=== PATIENT | female | born 1995 | race Caucasian/White ===

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

== ENCOUNTER 2017-05-23 22:41 | Emergency (ER) | payer OTHER ==
[~2017-05-23] VITALS: Ht 149.9 cm; Wt 64.0 kg
[2017-05-23 23:31] LABS: APPEARANCE CLEAR ((CLEAR)); BILIRUBIN NEGATIVE; BLOOD NEGATIVE; COLOR STRAW ((YELLOW)); GLUCOSE (STRIP) NEGATIVE; KETONES NEGATIVE; LEUKOCYTES TRACE; NITRITE NEGATIVE; PROTEIN (STRIP) NEGATIVE; SPECIFIC GRAVITY 1.002 (1.000-1.030); UROBILINOGEN 0.2 MG/DL (0.2-1.0)
[2017-05-23 23:36] LABS: BACTERIA RARE /HPF; EPITHELIAL CELLS 1+ /HPF; MUCUS NONE SEEN /LPF; RED BLOOD CELLS 0-5 /HPF (0-5); UCUL ADDED? NO; WHITE BLOOD CELLS 0-5 /HPF (0-5)
[2017-05-24] VITALS: BP 108/81
== END 2017-05-24 00:06 | disposition home or self-care (01) ==
LOC: EME 22:41
PROVIDERS: Emergency Medicine
DX: O26.891 Other specified pregnancy related conditions, first trimester (principal); W01.0XXA Fall on same level from slipping, tripping and stumbling without subsequent striking against object, initial encounter; Y93.02 Activity, running; Z3A.01 Less than 8 weeks gestation of pregnancy
CPT/HCPCS: 76801; 81003; 99281; 99283

== ENCOUNTER 2017-06-01 23:29 | Emergency (ER) | payer OTHER ==
[~2017-06-01] VITALS: Ht 149.9 cm; Wt 63.0 kg
[2017-06-01 23:51] LABS: HEMATOCRIT 37.7 % (36.0-46.0); HEMOGLOBIN 12.9 G/DL (11.9-15.5); MCHC 34.2 G/DL (30.0-36.0); MCV 87.7 FL (83-99); PLATELET COUNT 301 K/uL (156-360); RBC DIS.WIDTH-CV 13.9 % (11.8-14.6); RBC DIS.WIDTH-SD 44.7 % (39-53); WHITE BLOOD COUNT 8.2 K/uL (4.1-10.2)
[2017-06-01 23:59] LABS: ALBUMIN 4.1 g/dL (3.2-4.8); CHLORIDE 104 mEq/L (99-109); POTASSIUM 3.9 mEq/L (3.7-5.4); SODIUM 135 mEq/L (136-147)
[2017-06-02 00:01] LABS: GLUCOSE 101 mg/dL (70-99); TOTAL PROTEIN 6.8 g/dL (6.4-8.3)
[2017-06-02 00:03] LABS: TOTAL BILIRUBIN 0.4 mg/dL (0.0-1.0)
[2017-06-02 00:05] LABS: ALKALINE PHOSPHATASE 74 IU/L (3-129); CREATININE 0.7 mg/dL (0.6-1.3); GFR ESTIMATE (CALCULATED) > 59 mL/min/
[2017-06-02 00:06] LABS: AST (GOT) 19 IU/L (2-34); UREA NITROGEN (BUN) 10 mg/dL (9-23)
[2017-06-02 00:08] LABS: ALT (GPT) 15 IU/L (3-49)
[2017-06-02 00:10] LABS: APPEARANCE SL.HAZY ((CLEAR)); BILIRUBIN NEGATIVE; BLOOD NEGATIVE; COLOR YELLOW ((YELLOW)); GLUCOSE (STRIP) NEGATIVE; KETONES NEGATIVE; LEUKOCYTES SMALL; NITRITE NEGATIVE; PROTEIN (STRIP) NEGATIVE; SPECIFIC GRAVITY 1.006 (1.000-1.030); UROBILINOGEN 0.2 MG/DL (0.2-1.0)
[2017-06-02 00:31] LABS: QUANTITATIVE HCG 90267.2 MIU/ML
[2017-06-02 00:37] LABS: BACTERIA RARE /HPF; EPITHELIAL CELLS 3+ /HPF; MUCUS TRACE /LPF; RED BLOOD CELLS 0-5 /HPF (0-5); UCUL ADDED? NO; WHITE BLOOD CELLS 0-5 /HPF (0-5)
[2017-06-02 03:39] VITALS: BP 110/71
== END 2017-06-02 03:41 | disposition home or self-care (01) ==
LOC: EME 23:29
DX: O20.0 Threatened abortion (principal); Z3A.01 Less than 8 weeks gestation of pregnancy; O99.511 Diseases of the respiratory system complicating pregnancy, first trimester; J45.909 Unspecified asthma, uncomplicated; O99.341 Other mental disorders complicating pregnancy, first trimester; F32.9 Major depressive disorder, single episode, unspecified; F42.9 Obsessive-compulsive disorder, unspecified
CPT/HCPCS: 76801; 80053; 81003; 84702; 85027; 99281; 99284

== ENCOUNTER 2017-07-21 18:25 | Emergency (ER) | payer OTHER ==
[~2017-07-21] VITALS: Ht 149.9 cm; Wt 64.0 kg
[2017-07-21 19:11] LABS: HEMATOCRIT 35.2 % (36.0-46.0); HEMOGLOBIN 12.3 G/DL (11.9-15.5); MCH 30.9 PG (29.0-34.0); MCHC 34.9 G/DL (30.0-36.0); MCV 88.4 FL (83-99); PLATELET COUNT 225 K/uL (156-360); RBC DIS.WIDTH-CV 13.2 % (11.8-14.6); RBC DIS.WIDTH-SD 43.1 % (39-53); RED BLOOD COUNT 3.98 M/uL (3.80-5.20)
[2017-07-21 19:30] LABS: ALBUMIN 3.8 g/dL (3.2-4.8); CHLORIDE 107 mEq/L (99-109); POTASSIUM 4.6 mEq/L (3.7-5.4); SODIUM 138 mEq/L (136-147)
[2017-07-21 19:32] LABS: GLUCOSE 91 mg/dL (70-99)
[2017-07-21 19:33] LABS: TOTAL PROTEIN 6.7 g/dL (6.4-8.3)
[2017-07-21 19:34] LABS: TOTAL BILIRUBIN 0.4 mg/dL (0.0-1.0)
[2017-07-21 19:36] LABS: ALKALINE PHOSPHATASE 70 IU/L (3-129); CREATININE 0.6 mg/dL (0.6-1.3); GFR ESTIMATE (CALCULATED) > 59 mL/min/
[2017-07-21 19:37] LABS: UREA NITROGEN (BUN) 7 mg/dL (9-23)
[2017-07-21 19:38] LABS: AST (GOT) 16 IU/L (2-34)
[2017-07-21 19:39] LABS: ALT (GPT) 10 IU/L (3-49)
[2017-07-21 19:51] LABS: APPEARANCE CLEAR ((CLEAR)); BILIRUBIN NEGATIVE; BLOOD NEGATIVE; COLOR YELLOW ((YELLOW)); GLUCOSE (STRIP) NEGATIVE; KETONES NEGATIVE; LEUKOCYTES TRACE; NITRITE NEGATIVE; PROTEIN (STRIP) NEGATIVE; SPECIFIC GRAVITY 1.004 (1.000-1.030); UROBILINOGEN 0.2 MG/DL (0.2-1.0)
[2017-07-21 20:05] LABS: BACTERIA NONE SEEN /HPF; EPITHELIAL CELLS 1+ /HPF; MUCUS NONE SEEN /LPF; RED BLOOD CELLS 0-5 /HPF (0-5); UCUL ADDED? NO; WHITE BLOOD CELLS 0-5 /HPF (0-5)
[2017-07-21 21:18] VITALS: BP 98/70
== END 2017-07-21 21:25 | disposition home or self-care (01) ==
LOC: EME → EDBD 18:25 → EME 21:25
PROVIDERS: Emergency Medicine Emergency Medical Services
DX: O99.282 Endocrine, nutritional and metabolic diseases complicating pregnancy, second trimester (principal); E86.0 Dehydration; O26.892 Other specified pregnancy related conditions, second trimester; R10.9 Unspecified abdominal pain; R53.1 Weakness; W18.30XA Fall on same level, unspecified, initial encounter; O99.342 Other mental disorders complicating pregnancy, second trimester; F32.9 Major depressive disorder, single episode, unspecified; Z3A.15 15 weeks gestation of pregnancy
CPT/HCPCS: 80053; 81003; 85027; 93005; 99281; 99285

== ENCOUNTER 2017-07-29 21:44 | Emergency (ER) | payer OTHER ==
[~2017-07-29] VITALS: Ht 149.9 cm; Wt 63.0 kg
[2017-07-29 22:25] LABS: HEMATOCRIT 33.1 % (36.0-46.0); HEMOGLOBIN 11.4 G/DL (11.9-15.5); MCH 30.2 PG (29.0-34.0); MCHC 34.4 G/DL (30.0-36.0); MCV 87.8 FL (83-99); PLATELET COUNT 250 K/uL (156-360); RBC DIS.WIDTH-CV 13.2 % (11.8-14.6); RBC DIS.WIDTH-SD 42.4 % (39-53); RED BLOOD COUNT 3.77 M/uL (3.80-5.20); WHITE BLOOD COUNT 6.9 K/uL (4.1-10.2)
[2017-07-29 22:36] LABS: CHLORIDE 106 mEq/L (99-109); POTASSIUM 3.2 mEq/L (3.7-5.4); SODIUM 139 mEq/L (136-147)
[2017-07-29 22:38] LABS: GLUCOSE 91 mg/dL (70-99)
[2017-07-29 22:42] LABS: CREATININE 0.6 mg/dL (0.6-1.3); GFR ESTIMATE (CALCULATED) > 59 mL/min/
[2017-07-29 22:43] LABS: UREA NITROGEN (BUN) 5 mg/dL (9-23)
[2017-07-30 00:08] LABS: APPEARANCE CLEAR ((CLEAR)); BILIRUBIN NEGATIVE; BLOOD SMALL; COLOR STRAW ((YELLOW)); GLUCOSE (STRIP) NEGATIVE; KETONES NEGATIVE; LEUKOCYTES NEGATIVE; NITRITE NEGATIVE; PROTEIN (STRIP) NEGATIVE; SPECIFIC GRAVITY 1.008 (1.000-1.030); UROBILINOGEN 0.2 MG/DL (0.2-1.0)
[2017-07-30] MEDS ORDERED: PHENERGAN1.25 MG/ML PO (00:24)
[2017-07-30] MEDS ORDERED: ZITHROMAX Z-PA250 MG PO (00:24)
[2017-07-30 00:40] LABS: BACTERIA RARE /HPF; EPITHELIAL CELLS RARE /HPF; HYALINE CASTS 0-5 /LPF; MUCUS NONE SEEN /LPF; RED BLOOD CELLS 0-5 /HPF (0-5); UCUL ADDED? NO; WHITE BLOOD CELLS 0-5 /HPF (0-5)
[2017-07-30] MEDS ORDERED: VENTOLIN HFA18 GM IH (00:52)
[2017-07-30 00:54] VITALS: BP 102/57
[2017-07-30] MEDS ORDERED: PREDNISONE20 MG PO (23:54)
== END 2017-07-30 00:56 | disposition home or self-care (01) ==
LOC: EME 21:44
PROVIDERS: Physician Assistant
DX: O99.512 Diseases of the respiratory system complicating pregnancy, second trimester (principal); J06.9 Acute upper respiratory infection, unspecified; O26.892 Other specified pregnancy related conditions, second trimester; R10.30 Lower abdominal pain, unspecified; O99.342 Other mental disorders complicating pregnancy, second trimester; F32.9 Major depressive disorder, single episode, unspecified; Z3A.16 16 weeks gestation of pregnancy
CPT/HCPCS: 76805; 80048; 81003; 85027; 87502; 94640; 99281; 99284

== ENCOUNTER 2017-07-30 20:08 | Emergency (ER) | payer OTHER ==
[~2017-07-30] VITALS: Ht 149.9 cm; Wt 63.9 kg
[~2017-07-30 20:08] MED LIST changes: +PHENERGAN1.25 MG/ML PO; +VENTOLIN HFA18 GM IH
[2017-07-30 21:20] LABS: APPEARANCE CLEAR ((CLEAR)); BILIRUBIN NEGATIVE; BLOOD NEGATIVE; COLOR STRAW ((YELLOW)); GLUCOSE (STRIP) NEGATIVE; KETONES NEGATIVE; LEUKOCYTES NEGATIVE; NITRITE NEGATIVE; PROTEIN (STRIP) NEGATIVE; SPECIFIC GRAVITY 1.004 (1.000-1.030); UCUL ADDED? NO; UROBILINOGEN 0.2 MG/DL (0.2-1.0)
[2017-07-30 21:41] LABS: HEMATOCRIT 32.1 % (36.0-46.0); HEMOGLOBIN 11.2 G/DL (11.9-15.5); MCH 31.3 PG (29.0-34.0); MCHC 34.9 G/DL (30.0-36.0); MCV 89.7 FL (83-99); PLATELET COUNT 239 K/uL (156-360); RBC DIS.WIDTH-CV 13.3 % (11.8-14.6); RBC DIS.WIDTH-SD 43.9 % (39-53); RED BLOOD COUNT 3.58 M/uL (3.80-5.20); WHITE BLOOD COUNT 7.2 K/uL (4.1-10.2)
[2017-07-30 21:59] LABS: ALBUMIN 3.6 g/dL (3.2-4.8); CHLORIDE 105 mEq/L (99-109); POTASSIUM 3.4 mEq/L (3.7-5.4); SODIUM 137 mEq/L (136-147)
[2017-07-30 22:01] LABS: GLUCOSE 71 mg/dL (70-99); TOTAL PROTEIN 6.2 g/dL (6.4-8.3)
[2017-07-30 22:03] LABS: TOTAL BILIRUBIN 0.1 mg/dL (0.0-1.0)
[2017-07-30 22:05] LABS: ALKALINE PHOSPHATASE 74 IU/L (3-129); CREATININE 0.6 mg/dL (0.6-1.3); GFR ESTIMATE (CALCULATED) > 59 mL/min/
[2017-07-30 22:06] LABS: UREA NITROGEN (BUN) 6 mg/dL (9-23)
[2017-07-30 22:07] LABS: AST (GOT) 17 IU/L (2-34)
[2017-07-30 22:08] LABS: ALT (GPT) 14 IU/L (3-49); LIPASE 8 U/L (1.0-51.0)
[2017-07-30 22:10] LABS: TROP-I INTERPRETATION NEGATIVE; TROPONIN-I < 0.01 ng/mL (0.0-0.30)
[2017-07-30] MEDS ORDERED: PREDNISONE20 MG PO (23:54)
[2017-07-31 00:09] VITALS: BP 106/62
== END 2017-07-31 00:15 | disposition home or self-care (01) ==
LOC: EME 20:08
PROVIDERS: Physician Assistant
DX: O99.512 Diseases of the respiratory system complicating pregnancy, second trimester (principal); J45.901 Unspecified asthma with (acute) exacerbation; R10.2 Pelvic and perineal pain; Z3A.16 16 weeks gestation of pregnancy
CPT/HCPCS: 71046; 76805; 80053; 81003; 83690; 84484; 84702; 85027; 85379; 86900; 86901; 93005; 94640; 94644; 99281; 99285; J7030; J7512

== ENCOUNTER 2017-10-10 18:55 | Emergency (ER) | payer OTHER ==
[~2017-10-10] VITALS: Ht 149.9 cm; Wt 68.8 kg
[~2017-10-10 18:55] MED LIST changes: +PREDNISONE20 MG PO
[2017-10-10 20:51] LABS: HEMATOCRIT 29.8 % (36.0-46.0); HEMOGLOBIN 10.1 G/DL (11.9-15.5); MCH 30.8 PG (29.0-34.0); MCHC 33.9 G/DL (30.0-36.0); MCV 90.9 FL (83-99); PLATELET COUNT 249 K/uL (156-360); RBC DIS.WIDTH-SD 42.6 % (39-53); RED BLOOD COUNT 3.28 M/uL (3.80-5.20); WHITE BLOOD COUNT 9.3 K/uL (4.1-10.2)
[2017-10-10 20:59] LABS: CHLORIDE 106 mEq/L (99-109); POTASSIUM 3.7 mEq/L (3.7-5.4); SODIUM 140 mEq/L (136-147)
[2017-10-10 21:01] LABS: GLUCOSE 84 mg/dL (70-99)
[2017-10-10 21:05] LABS: CREATININE 0.6 mg/dL (0.6-1.3); GFR ESTIMATE (CALCULATED) > 59 mL/min/
[2017-10-10 21:06] LABS: UREA NITROGEN (BUN) 5 mg/dL (9-23)
[2017-10-10 22:26] VITALS: BP 113/70
== END 2017-10-10 22:26 | disposition home or self-care (01) ==
LOC: EME 18:55
PROVIDERS: Emergency Medicine
DX: H53.8 Other visual disturbances (principal); Z33.1 Pregnant state, incidental; F32.9 Major depressive disorder, single episode, unspecified; F41.9 Anxiety disorder, unspecified
CPT/HCPCS: 80048; 85027; 99281; 99284

== ENCOUNTER 2017-10-20 14:47 | Emergency (ER) | payer OTHER ==
[~2017-10-20] VITALS: Ht 149.9 cm; Wt 154.3 kg
[2017-10-20 15:22] LABS: BASOPHIL (%) 0.3 % (0-1); EOSINOPHIL (%) 1.3 % (0-5); EOSINOPHIL COUNT 0.1 K/uL (0-0.3); HEMATOCRIT 31.9 % (36.0-46.0); HEMOGLOBIN 10.8 G/DL (11.9-15.5); IMMATURE GRANULOCYTE (%) 0.9 % (0.0-0.7); LYMPHOCYTE (%) 16.1 % (15-42); LYMPHOCYTE COUNT 1.7 K/uL (1.0-2.8); MCH 30.1 PG (29.0-34.0); MCHC 33.9 G/DL (30.0-36.0); MCV 88.9 FL (83-99); MONOCYTE (%) 7.2 % (3-12); MONOCYTE COUNT 0.8 K/uL (0-0.8); NEUTROPHIL (%) 74.2 % (45-76); NEUTROPHIL COUNT 7.9 K/uL (1.8-6.4); PLATELET COUNT 260 K/uL (156-360); RBC DIS.WIDTH-CV 12.9 % (11.8-14.6); RED BLOOD COUNT 3.59 M/uL (3.80-5.20); WHITE BLOOD COUNT 10.7 K/uL (4.1-10.2)
[2017-10-20 15:29] LABS: CHLORIDE 105 mEq/L (99-109); SODIUM 134 mEq/L (136-147)
[2017-10-20 15:31] LABS: GLUCOSE 76 mg/dL (70-99)
[2017-10-20 15:35] LABS: CREATININE 0.6 mg/dL (0.6-1.3); GFR ESTIMATE (CALCULATED) > 59 mL/min/; UREA NITROGEN (BUN) 6 mg/dL (9-23)
[2017-10-20 16:59] VITALS: BP 101/69
== END 2017-10-20 17:13 | disposition home or self-care (01) ==
LOC: EME 14:47
PROVIDERS: Emergency Medicine
DX: O99.89 Other specified diseases and conditions complicating pregnancy, childbirth and the puerperium (principal); R42 Dizziness and giddiness; Z3A.28 28 weeks gestation of pregnancy; O99.343 Other mental disorders complicating pregnancy, third trimester; F41.9 Anxiety disorder, unspecified; F32.9 Major depressive disorder, single episode, unspecified; Z91.018 Allergy to other foods
CPT/HCPCS: 80048; 85025; 99281; 99284; J7030

== ENCOUNTER 2017-10-31 18:40 | Day surgery (SDC) | payer OTHER ==
[~2017-10-31] VITALS: Ht 149.9 cm; Wt 68.6 kg
[2017-10-31 18:59] VITALS: BP 106/59
[2017-10-31 20:02] VITALS: BP 112/61
[2017-10-31] MEDS ORDERED: ZOLOFT50 MG PO (21:20)
[2017-10-31] MEDS ORDERED: PRENATAL TABLE1 EAC3 PO (21:20)
[2017-10-31] MEDS ORDERED: IRON325 M1 PO (21:20)
[2017-10-31] MEDS ORDERED: PROBIOTIC1 EAC1 PO (21:21)
== END 2017-10-31 21:31 | disposition home or self-care (01) ==
LOC: LDRP-OP 18:40 → 2WEST 18:41
DX: O26.893 Other specified pregnancy related conditions, third trimester (principal); W10.9XXA Fall (on) (from) unspecified stairs and steps, initial encounter; O99.343 Other mental disorders complicating pregnancy, third trimester; F32.9 Major depressive disorder, single episode, unspecified; F41.9 Anxiety disorder, unspecified; O99.613 Diseases of the digestive system complicating pregnancy, third trimester; K58.9 Irritable bowel syndrome, unspecified; O99.513 Diseases of the respiratory system complicating pregnancy, third trimester; J45.909 Unspecified asthma, uncomplicated; O99.013 Anemia complicating pregnancy, third trimester; Z3A.29 29 weeks gestation of pregnancy
CPT/HCPCS: 59025; G0378

== ENCOUNTER 2017-11-05 18:58 | Outpatient (CLI) | payer OTHER ==
[~2017-11-05] VITALS: Ht 149.9 cm; Wt 68.6 kg
[~2017-11-05 18:58] MED LIST changes: +IRON325 M1 PO; +PROBIOTIC1 EAC1 PO; +ZOLOFT50 MG PO
[2017-11-05 19:20] LABS: HEMATOCRIT 29.9 % (36.0-46.0); HEMOGLOBIN 10.1 G/DL (11.9-15.5); MCH 30.6 PG (29.0-34.0); MCHC 33.8 G/DL (30.0-36.0); MCV 90.6 FL (83-99); PLATELET COUNT 241 K/uL (156-360); RBC DIS.WIDTH-CV 14.5 % (11.8-14.6); RBC DIS.WIDTH-SD 46.9 % (39-53); WHITE BLOOD COUNT 8.5 K/uL (4.1-10.2)
[2017-11-05 19:28] LABS: CHLORIDE 107 mEq/L (99-109); POTASSIUM 3.9 mEq/L (3.7-5.4); SODIUM 137 mEq/L (136-147)
[2017-11-05 19:29] LABS: GLUCOSE 91 mg/dL (70-99)
[2017-11-05 19:33] LABS: CREATININE 0.6 mg/dL (0.6-1.3); GFR ESTIMATE (CALCULATED) > 59 mL/min/
[2017-11-05 19:34] LABS: UREA NITROGEN (BUN) 6 mg/dL (9-23)
[2017-11-05 19:39] LABS: TROP-I INTERPRETATION NEGATIVE; TROPONIN-I < 0.01 ng/mL (0.0-0.30)
[2017-11-05 20:27] LABS: ALBUMIN 3.4 g/dL (3.2-4.8)
[2017-11-05 20:30] LABS: TOTAL PROTEIN 6.1 g/dL (6.4-8.3)
[2017-11-05 20:32] LABS: PTT 24.5 SEC (25-37); TOTAL BILIRUBIN 0.3 mg/dL (0.0-1.0)
[2017-11-05 20:33] LABS: ALKALINE PHOSPHATASE 92 IU/L (3-129)
[2017-11-05 20:35] LABS: AST (GOT) 17 IU/L (2-34); DIRECT BILIRUBIN 0.1 mg/dL (0.0-0.3)
[2017-11-05 20:36] LABS: ALT (GPT) 11 IU/L (3-49); LIPASE 10 U/L (1.0-51.0)
[2017-11-05 21:05] LABS: LACTATE DEHYDROGENASE 257 IU/L (20-246)
[2017-11-05 23:49] LABS: SOURCE SWAB
[2017-11-06 00:03] LABS: APPEARANCE CLEAR ((CLEAR)); BILIRUBIN NEGATIVE; BLOOD NEGATIVE; COLOR YELLOW ((YELLOW)); GLUCOSE (STRIP) NEGATIVE; KETONES NEGATIVE; LEUKOCYTES NEGATIVE; NITRITE POSITIVE; PROTEIN (STRIP) NEGATIVE; UROBILINOGEN 0.2 MG/DL (0.2-1.0)
[2017-11-06 00:22] LABS: BACTERIA RARE /HPF; EPITHELIAL CELLS RARE /HPF; MUCUS NONE SEEN /LPF; RED BLOOD CELLS 0-5 /HPF (0-5); WHITE BLOOD CELLS 0-5 /HPF (0-5)
[2017-11-06 02:31] VITALS: BP 108/74
[2017-11-06 04:10] VITALS: BP 84/52
[2017-11-06 04:57] VITALS: BP 114/62
== END 2017-11-06 05:25 | disposition home or self-care (01) ==
LOC: LDRP-OP 18:58 → EME 18:58 → 2WEST 11-06 02:23
PROVIDERS: Emergency Medicine
DX: O26.893 Other specified pregnancy related conditions, third trimester (principal); Z3A.30 30 weeks gestation of pregnancy; R07.9 Chest pain, unspecified; R06.02 Shortness of breath; R10.9 Unspecified abdominal pain; O99.343 Other mental disorders complicating pregnancy, third trimester; F32.9 Major depressive disorder, single episode, unspecified; F41.9 Anxiety disorder, unspecified
CPT/HCPCS: 59025; 71046; 71275; 80048; 80076; 81003; 83615; 83690; 84484; 85027; 85379; 85610; 85730; 87210; 87491; 87591; 93005; 93970; 99281; 99285; G0378; J7030

== ENCOUNTER 2017-12-09 17:10 | Emergency (ER) | payer OTHER ==
[~2017-12-09] VITALS: Ht 149.9 cm; Wt 80.0 kg
[2017-12-09 19:59] LABS: HEMATOCRIT 32.1 % (36.0-46.0); HEMOGLOBIN 10.9 G/DL (11.9-15.5); MCH 30.5 PG (29.0-34.0); MCV 89.9 FL (83-99); PLATELET COUNT 221 K/uL (156-360); RBC DIS.WIDTH-CV 15.1 % (11.8-14.6); RBC DIS.WIDTH-SD 49.5 % (39-53); RED BLOOD COUNT 3.57 M/uL (3.80-5.20); WHITE BLOOD COUNT 8.3 K/uL (4.1-10.2)
[2017-12-09 20:09] LABS: ALBUMIN 3.4 g/dL (3.2-4.8); CHLORIDE 108 mEq/L (99-109); POTASSIUM 3.8 mEq/L (3.7-5.4); SODIUM 137 mEq/L (136-147)
[2017-12-09 20:12] LABS: GLUCOSE 95 mg/dL (70-99); TOTAL PROTEIN 6.3 g/dL (6.4-8.3)
[2017-12-09 20:14] LABS: TOTAL BILIRUBIN 0.3 mg/dL (0.0-1.0)
[2017-12-09 20:15] LABS: ALKALINE PHOSPHATASE 114 IU/L (3-129); CREATININE 0.6 mg/dL (0.6-1.3); GFR ESTIMATE (CALCULATED) > 59 mL/min/
[2017-12-09 20:16] LABS: UREA NITROGEN (BUN) 8 mg/dL (9-23)
[2017-12-09 20:17] LABS: AST (GOT) 18 IU/L (2-34)
[2017-12-09 20:18] LABS: ALT (GPT) 9 IU/L (3-49)
[2017-12-09 20:19] LABS: TROP-I INTERPRETATION NEGATIVE; TROPONIN-I < 0.01 ng/mL (0.0-0.30)
[2017-12-09 22:04] VITALS: BP 95/58
== END 2017-12-09 22:06 | disposition home or self-care (01) ==
LOC: EME 17:10
PROVIDERS: Emergency Medicine
DX: O99.283 Endocrine, nutritional and metabolic diseases complicating pregnancy, third trimester (principal); E86.0 Dehydration; R00.2 Palpitations; R42 Dizziness and giddiness; Z3A.35 35 weeks gestation of pregnancy
CPT/HCPCS: 80053; 81003; 84484; 85027; 93005; 99281; 99285; J7030